=== PATIENT | female | born 1960 | race Caucasian/White ===

== ENCOUNTER → 2016-06-26 12:36 | Emergency (ER) | payer BC ==
[2016-06-26 12:04] LABS: URINE SOURCE CLEAN CATCH
[2016-06-26 12:09] LABS: URINE APPEARANCE CLEAR; URINE BILIRUBIN NEG (NEG); URINE BLOOD 3+ (NEG); URINE COLOR YELLOW; URINE GLUCOSE >1000 MG/DL (NEG); URINE KETONE NEG (NEG); URINE LEUKOCYTE ESTERASE 1+ (NEG); URINE NITRATE NEG (NEG); URINE PH 5.5 (5-8); URINE PROTEIN NEG (NEG); URINE SPECIFIC GRAVITY 1.024 (1.003-1.035); URINE UROBILINOGEN 0.2 MG/DL (NEG)
[2016-06-26 12:12] LABS: CULTURE INDICATED? YES; U HYALINE CASTS AUWI 0-2 /[LPF]; URBCS1 AUWI 25-50 /[HPF] (0-2); URINE BACTERIA AUWI 2+ (NEGATIVE); URINE SQUAMOUS EPITHELIAL CELL NONE SEEN /[HPF]; UWBCS1 AUWI 100-200 (0-5)
[~2016-06-26 12:36] MED LIST: ACETAMINOPHEN PO; ACIPHEX20 MG PO; ALBUTEROL17 GM INH; BENADRYL A12.5 MG/1 PO; BENEFIBER PO; CHILD IBUP100 MG/51 PO; CLARITIN10 M3 PO; FLEXERIL10 M1 PO; FLEXERIL10 MG PO; LEVEMIR FL100 UNIT/1 SUBQ; LEVEMIR INJ; LEVEMIR SQ; LIPITOR40 MG PO; LISINOPRIL PO; LISINOPRIL20 MG PO; LOVASTATIN20 M1 PO; MEDI-MECLIZINE25 M1 PO; METOPROLOL TAR25 MG PO; MEVACOR PO; MIRALAX17 G1 PO; MOBIC PO; OMEPRAZOLE40 M1 PO; PREDNISONE PO; PRILOSEC40 MG PO; ROSUVASTATIN CAL5 MG PO; TAGAMET300 M1 PO; TRAVEL MOTION S25 MG PO; TYLENOL325 M1 PO; ULTRAM PO; [UNRECOGNIZED DRUG - OTHER] PO
== END | disposition home or self-care (01) ==
LOC: CFTX 12:36
PROVIDERS: Nurse Practitioner
DX: N30.00 Acute cystitis without hematuria (principal); E11.9 Type 2 diabetes mellitus without complications; Z90.710 Acquired absence of both cervix and uterus; Z90.49 Acquired absence of other specified parts of digestive tract; Z79.899 Other long term (current) drug therapy
CPT/HCPCS: 81003; 82947; 87086; 87088; 87186; 99283

== ENCOUNTER → 2016-07-25 | Outpatient (CLI) | payer BC ==
--- NOTE | ~2016-07-25 | MY11 ---
[facility] A Service of [facility] RADIOLOGY TEXT RESULTS PATIENT: ROHITH SO LOCATION: [facility] : 56 UNIT #: [id number] AGE: [address]: Nancy Cardoza MD SEX: F ORDER DR: [id number] [facility] [address] [place], [place] [address] [id number] O MR#: [id number] Acc #: [id number] NAME: ROHITH SO : 1960 SEX: F STUDY DATE/TIME: 07/25/2016 10:54 UNIT: [facility] ROOM: STUDY DESCRIPTION: MY Mammogram Screening Dig Tommy Attending Physician: Nancy Cardoza M.D. Ordering Physician: Nancy Cardoza M.D. Primary Care Physician: Nancy Cardoza M.D. MEDICAL IMAGING REPORT This report is preliminary unless electronic signature is present EXAM Digital screening mammogram, 07/25/16, [facility]. HISTORY 56-year-old woman, no risk elevation. Annual screen. COMPARISON Mammograms date to 04/02/07, with most recent 07/06/15. FINDINGS Digital imaging of each breast was completed utilizing a two-view examination of each breast in craniocaudal and mediolateral-oblique projections. Review and interpretation of digital mammograms include a second review in conjunction with FDA-approved CAD device. There is a normal parenchymal presentation bilaterally consistent with the patient's age. There are no breast masses imaged and no parenchymal asymmetry is visualized. There are no suspicious microcalcifications and I see no focal architectural disturbance. IMPRESSION Negative screening digital mammogram. One-year followup recommended. Patients over the age of 40 are entered into a reminder system with target due date for the next mammogram. A result letter will also be sent to the patient. BIRADS: 1 Negative. ADDENDUM Breast parenchyma is fatty replaced. [facility] A Service of [facility] RADIOLOGY TEXT RESULTS PATIENT: ROHITH SO LOCATION: [facility] : 56 UNIT #: [id number] AGE: [address]: Nancy Cardoza MD SEX: F ORDER DR: Dictated by... Solomon Hamilton M.D. THIS IS AN ELECTRONICALLY VERIFIED REPORT Solomon Hamilton M.D. at 07/26/2016 8:05 AM DESTIN/ovidio TD: 07/25/2016 18:09 JOB #: [id number] MEDICAL IMAGING REPORT Page 1 of 1 COPY
== END | disposition home or self-care (01) ==
LOC: CWCC 10:39
DX: Z12.31 Encounter for screening mammogram for malignant neoplasm of breast (principal)
CPT/HCPCS: G0202

== ENCOUNTER → 2016-09-20 | Day surgery (SDC) | payer BC ==
--- NOTE | ~2016-09-20 | OR ---
Unit #: [id number] #: [id number] Patient: ROHITH SO [id number] [address] [address] [id number] O MR#: [id number] NAME: ROHITH SO ROOM: Date of Procedure: 09/20/2016 Admission Date: 09/20/2016 Surgeon: Kojo Maldonado M.D. : 1960 Attending Physician: Kojo Maldonado M.D. Primary Care Physician: Nancy Cardoza M.D. OPERATIVE REPORT PROCEDURE PERFORMED Colonoscopy to cecum. INDICATIONS FOR PROCEDURE Average-risk for colorectal cancer. MEDICATIONS Monitored anesthesia. POSTOPERATIVE FINDINGS 1. Normal exam to cecum. 2. Good prep. PLAN Repeat colonoscopy in 10 years. DESCRIPTION OF PROCEDURE The patient was explained of the procedure, risks, and benefits along with risks and benefits of anesthesia. She was brought to the endoscopy room. Propofol anesthesia was given. Rectal exam was done, which was normal. Colonoscope was lubricated, passed up the rectum, advanced under direct vision all the way to cecum. Cecum was identified by ileocecal valve and appendiceal orifice. No polyps, masses, or colitis was seen. Mucosa was normal and healthy. I retroflexed in the rectum, small hemorrhoids seen. Gently, the scope was pulled out. She tolerated it well. Dictated by... Katherine Aly/juliann TD: 09/21/2016 15:09 JOB #: [id number] Unit #: [id number] #: [id number] Patient: ROHITH SO OPERATIVE REPORT Page 1 of 1 X Kojo Maldonado MD X PROCEDURE OPERATIVE NOTE
== END | disposition home or self-care (01) ==
LOC: COPS 08:26
DX: Z12.11 Encounter for screening for malignant neoplasm of colon (principal); K64.9 Unspecified hemorrhoids; K21.9 Gastro-esophageal reflux disease without esophagitis; E11.9 Type 2 diabetes mellitus without complications; I10 Essential (primary) hypertension; Z88.8 Allergy status to other drugs, medicaments and biological substances; Z79.4 Long term (current) use of insulin; Z79.899 Other long term (current) drug therapy; Z90.49 Acquired absence of other specified parts of digestive tract; Z90.710 Acquired absence of both cervix and uterus; Z98.890 Other specified postprocedural states
CPT/HCPCS: 82947; J2250